=== PATIENT | female | born 1965 | race African-American/Black ===

== ENCOUNTER 2017-09-02 13:28 | Outpatient (CLI) | payer MEDICARE, OTHER ==
[~2017-09-02 13:28] MED LIST: ALDACTONE50 MG ORAL; AMBIEN5 MG ORAL; AMLODIPINE BESY10 MG ORAL; AMOXICILLIN500 M1 PO; ASPIRIN EC81 MG ORAL; ATENOLOL25 MG ORAL; ATIVAN1 MG ORAL; AUGMENTIN 875-1 EAC1 ORAL; BENADRYL ALLERG25 M1 PO; CARDIAZEM CD240 MG ORAL; CARDIZEM CD180 MG ORAL; CARDIZEM CD240 MG ORAL; CARDIZEM90 MG ORAL; CARDURA1 MG ORAL; CARDURA2 MG ORAL; CARDURA4 MG ORAL; CATAPRES0.1 MG ORAL; CATAPRES0.2 MG ORAL; CHLORTHALIDONE25 MG ORAL; CLONIDINE 0.2M0.2 MG ORAL; CLONIDINE 0.2M0.2 MG PO; CLONIDINE0.1 MG ORAL; COZAAR50 MG ORAL; CRESTOR10 M1 ORAL; CRESTOR40 MG ORAL; CYCLOBENZAPRINE10 MG ORAL; DIFLUCAN100 MG ORAL; DILAUDID2 MG ORAL; DILTIAZEM HCL120 MG PO; DIOVAN320 MG ORAL; DIURIL25 MG ORAL; DOXAZOSIN MESYLA4 MG ORAL; FUROSEMIDE20 M1 ORAL; FUROSEMIDE40 MG ORAL; IBUPROFEN600 MG ORAL; LABETALOL20 MG/4 ML ORAL; LOSARTAN POTASS50 MG ORAL; MINOXIDIL10 MG PO; Mesalamine ORAL; Miscellaneous Information ORAL; NORMODYNE200 MG ORAL; NORVASC5 MG ORAL; OMEPRAZOLE20 M3 ORAL; PROTONIX40 MG ORAL; ROXICODONE5 MG ORAL; TENORMIN25 MG ORAL; TRIAMTERENE-HC1 EAC6 PO; VASOTEC10 MG ORAL
[2017-09-02 13:30] VITALS: BP 205/91
--- NOTE | 2017-09-02 15:19 | GI Progress Note ---
Assessment/Plan Problems: (1) Ulcerative colitis ICD Codes: K51.90 - Ulcerative colitis, unspecified, without complications SNOMED: 86322265 (2) Abdominal pain (3) Diarrhea ICD Codes: R19.7 - Diarrhea, unspecified SNOMED: 20472649 (4) Hypertension ICD Codes: I10 - Essential (primary) hypertension SNOMED: 28914112 (5) Anemia ICD Codes: D64.9 - Anemia SNOMED: 771031154 (6) Malignant hypertension (arteriolar nephrosclerosis) ICD Codes: I12.9 - Malignant hypertension (arteriolar nephrosclerosis) SNOMED: 25598202 Status: unchanged Status Narrative Seen with Dr. Stevens. Assessment/Plan UC >> Apriso 4 tabs daily RTC x 2 weeks consider w/u for cdiff if no improvement last colonoscopy was 2014 with dx of UC fu PCP for malignant HTN. Subjective Subjective hx of UC, refuses Asacol Align did not work urge to have BM x 6 days when standing, solid and diarrhea R hand numbness has chronic HTN Objective T 98.6 BP 205/91 P 60 94 RA Denies any unintentional weight loss or changes in dietary habits. General Appearance: WD/WN, no apparent distress, alert Cardiovascular: normal rate Respiratory/Chest: normal breath sounds, no respiratory distress Abdominal Exam: normal bowel sounds, non tender, soft Extremities: normal range of motion, non-tender Annette Hannah N.P. Sep 02, 2017 15:19
[2017-09-02] MEDS ORDERED: TORSEMIDE20 MG ORAL (15:22)
[2017-09-02] MEDS ORDERED: BYSTOLIC10 MG ORAL (15:22)
== END 2017-09-02 14:10 | disposition home or self-care (01) ==
LOC: PAN 13:28
DX: K51.90 Ulcerative colitis, unspecified, without complications (principal); R10.9 Unspecified abdominal pain; R19.7 Diarrhea, unspecified; I10 Essential (primary) hypertension; D64.9 Anemia, unspecified
CPT/HCPCS: 99211

== ENCOUNTER 2018-04-20 10:37 | Outpatient (CLI) | payer MEDICARE, OTHER ==
[~2018-04-20 10:37] MED LIST changes: +BYSTOLIC10 MG ORAL; +TORSEMIDE20 MG ORAL
--- NOTE | 2018-04-21 09:52 | GI Progress Note ---
Assessment/Plan Problems: (1) Colonoscopy planned SNOMED: 820523700 (2) Diarrhea ICD Codes: R19.7 - Diarrhea, unspecified SNOMED: 75231949 (3) Abdominal pain (4) Colitis ICD Codes: K52.9 - Noninfective gastroenteritis and colitis, unspecified SNOMED: 902039140 Status: stable Status Narrative Seen with Dr. Stevens. Assessment/Plan Colonoscopy to be scheduled pending cardiac clearance given elevated BP will contact primary Subjective Subjective severe diarrhea 6-7 times daily for months UC, did not take apriso because of the size of the tablet last colonoscopy 2014 with diffused colitis Objective T 98.1 BP 151/82 P 62 97 RA General Appearance: WD/WN, no apparent distress, alert Cardiovascular: normal rate Respiratory/Chest: normal breath sounds, no respiratory distress Abdominal Exam: normal bowel sounds, non tender, soft Extremities: normal range of motion, non-tender Gabino Hannah NP Apr 21, 2018 09:52
== END 2018-04-20 11:10 | disposition home or self-care (01) ==
LOC: PAN 10:37
DX: K52.9 Noninfective gastroenteritis and colitis, unspecified (principal); R19.7 Diarrhea, unspecified; R10.9 Unspecified abdominal pain
CPT/HCPCS: 99212